=== PATIENT | female | born 2000 | race Caucasian/White ===

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

== ENCOUNTER 2024-05-16 09:32 | Inpatient (IN) | payer OTHER ==
[2024-05-16] MEDS ORDERED: CARBOPROST TROMETHAMINE 250 MCG/ML 1 ML AMP IM PRN ×2 (09:40→09:57)
[2024-05-16] MEDS ORDERED: miSOPROStoL 200 MCG TAB PO PRN ×2 (09:40→09:57)
[2024-05-16] MEDS ORDERED: TERBUTALINE 1 MG/ML VIAL SQ PRN ×2 (09:40→09:57)
[2024-05-16] MEDS ORDERED: LIDOCAINE 0.5% (PF) 5 MG/ML (50 ML SDV) SQ PRN ×2 (09:40→09:57)
[2024-05-16] MEDS ORDERED: TRANEXAMIC 1,000 MG/100ML-NACL 1,000 MG in EMPTY BAG 1 BAG IV PRN ×2 (09:40→09:57)
[2024-05-16] MEDS ORDERED: OXYTOCIN 10 UNIT/ML 1 ML VIAL IM PRN ×2 (09:40→09:57)
[2024-05-16] MEDS ORDERED: miSOPROStoL 200 MCG TAB RECTAL PRN ×2 (09:40→09:57)
[2024-05-16] MEDS ORDERED: METHYLERGONOVINE 0.2 MG/ML 1 ML AMP IM PRN ×2 (09:40→09:57)
[2024-05-16] MEDS ORDERED: OXYTOCIN 30 UNITS/500 ML NS 30 UNIT in SALINE 1 500ML.BAG IV SCH (09:45)
[2024-05-16] MEDS: LACTATED RINGERS 1,000 ML IV SCH ×2 (10:00→20:39)
[2024-05-16] MEDS: OXYTOCIN 30 UNITS/500 ML NS 30 UNIT in SALINE 1 500ML.BAG IV SCH (10:15)
[2024-05-16] MEDS ORDERED: diphenhydrAMINE 50 MG CAP PO PRN (11:20)
[2024-05-16] MEDS ORDERED: BENZOCAINE/MENTHOL SPRAY 1 GM/SPRAY AEROSOL TOPICAL PRN (11:20)
[2024-05-16] MEDS ORDERED: HYDROCORTISONE 2.5% RECTAL CREAM 30 GM TUBE RECTAL PRN (11:20)
[2024-05-16] MEDS ORDERED: LANOLIN CREAM 1 GM TUBE TOPICAL PRN (11:20)
[2024-05-16] MEDS ORDERED: diphenhydrAMINE 25 MG CAP PO PRN (11:20)
[2024-05-16] MEDS ORDERED: ZOLPIDEM 5 MG TAB PO PRN (11:20)
[2024-05-16] MEDS ORDERED: diphenhydrAMINE 50 MG/ML 1 ML VIAL IVP PRN ×2 (11:20)
[2024-05-16] MEDS ORDERED: SIMETHICONE 80 MG CHEWABLE PO PRN (11:20)
--- NOTE | 2024-05-16 11:23 | P.HPOB ---
History of Present Illness H&P Date: 05/16/24 Chief Complaint: active labor 23-year-old G2, P1 presents at 38 weeks and 5 days in active labor. Cervix was around dilated and +2 station. She was surendra every 2 minutes. heart tones category 1. She has had care at [facility] with Dr. Lili Rivero. Review of Systems All systems: negative Constitutional: Denies chills, Denies fever Eyes: denies blurred vision, denies pain Ears, nose, mouth and throat: Denies headache, Denies sore throat Cardiovascular: Denies chest pain, Denies shortness of breath Respiratory: Denies cough Gastrointestinal: Denies abdominal pain, Denies diarrhea, Denies nausea, Denies vomiting Genitourinary: Denies dysuria, Denies hematuria Musculoskeletal: Denies myalgias Integumentary: Denies pruritus, Denies rash Neurological: Denies numbness, Denies weakness Psychiatric: Denies anxiety, Denies depression Endocrine: Denies fatigue, Denies weight change Past Medical History Past Medical History: No Reported History History of Any Multi-Drug Resistant Organisms: None Reported Past Surgical History: No Surgical Hx Reported Past Anesthesia/Blood Transfusion Reactions: No Reported Reaction Past Psychological History: No Psychological Hx Reported Smoking Status: Never smoker Past Alcohol Use History: None Reported Past Drug Use History: None Reported - Past Family History Mother Family Medical History: No Reported History Medications and Allergies Home Medications Medication Instructions Recorded Confirmed Type Pediatric Multivitamin No.30 1 tab PO DAILY 11/06/17 05/16/24 History [Multivitamin Children's Gummies] Allergies Allergy/AdvReac Type Severity Reaction Status Date / Time No Known Allergies Allergy Verified 05/16/24 09:37 Exam Osteopathic Statement: *. No significant issues noted on an osteopathic structural exam other than those noted in the History and Physical/Consult. Vital Signs Temp Pulse Resp BP 05/16/24 11:04 62 17 146/82 05/16/24 10:49 68 17 148/89 05/16/24 10:34 65 18 127/82 05/16/24 10:19 97.7 F 100 16 121/78 Intake and Output 05/15/24 05/16/24 05/16/24 22:59 06:59 14:59 Output Total 100 Balance -100 Output: Output, Quantitative 100 Blood Loss Other: Weight 66.678 kg Heart: Regular rate and rhythm Lungs: Clear to auscultation bilaterally Abdomen: Soft, nontender Extremities: Negative Homans sign Assessment and Plan (1) Active labor Current Visit: Yes Status: Acute Code(s): [id number] - SNOMED Code(s): 442719815 Plan: 1. Admit to family birthplace 2. Expectant management 3. Anticipate normal vaginal delivery
--- NOTE | 2024-05-16 11:24 | P.PROBDLV ---
Vaginal Delivery Note - . Vaginal Delivery Note: 23-year-old G2, P1 presents at 38 weeks and 5 days in active labor. Cervix was around dilated and +2 station. She was surendra every 2 minutes. heart tones category 1. Patient believes that her water broke around 830 this morning. She pushed with about 4 contractions and delivered a viable female over intact perineum at 10:13 AM. Head delivered OA, anterior shoulder delivered to the OR guidance followed by posterior shoulder and rest of body. Nose and mouth bulb suction, clear Storm to cut, placed on mother's abdomen. Apgars 9, 9, weight 6 pounds 9 ounces. Placenta delivered spontaneously, intact with three-vessel cord 10:15 AM. Vagina, cervix, perineum were inspected. No lacerations noted. Estimated blood loss 100 mL. Mother and baby in stable condition.
[2024-05-16 11:42] LABS: Basophils % (A) 0 %; Eosinophils % (A) 0 %; HCT 35.5 % (34.0-46.0); HGB 11.5 gm/dL (11.4-16.0); Hypochromasia Moderate; Lymphocytes # (A) 1.3 k/uL (1.0-4.8); Lymphocytes % (A) 9 %; MCH 27.3 pg (25.0-35.0); MCHC 32.5 g/dL (31.0-37.0); Mean Platelet Volume 12.2; Monocytes # (A) 0.4 k/uL (0-1.0); Monocytes % (A) 3 %; Neutrophils # (A) 13.5 k/uL (1.3-7.7); Neutrophils % (A) 88 %; Platelet Count 173 k/uL (150-450); RBC 4.22 m/uL (3.80-5.40); RDW 14.8 % (11.5-15.5); WBC 15.4 k/uL (3.8-10.6)
[2024-05-16] MEDS: IBUPROFEN 800 MG TAB PO SCH (11:57)
[2024-05-16 12:19] LABS: Large Platelets Present; RBC Morphology Normal
[2024-05-16 12:31] LABS: Amphetamine Screen,Urine Not Detected (NotDetected); Barbiturate Screen,Urine Not Detected (NotDetected); Benzodiazepines Screen,Urine Not Detected (NotDetected); Cocaine Screen,Urine Not Detected (NotDetected); Methadone Screen, Urine Not Detected (NotDetected); Opiate Screen,Urine Not Detected (NotDetected); Oxycodone Screen, Urine Not Detected (NotDetected); Phencyclidine Screen,Urine Not Detected (NotDetected); Tricyclic Antidepressant,Urine Not Detected (NotDetected); Urn Cannabinoid Scrn Not Detected (NotDetected)
[2024-05-16] MEDS: SENNOSIDES-DOCUSATE SODIUM 1 EACH TAB PO SCH (20:35)
[2024-05-16] MEDS: ACETAMINOPHEN ORAL SUSP (PEDS) 3,840 MG/120 ML BOTTLE PO SCH (20:39)
[2024-05-17] MEDS: ACETAMINOPHEN TAB 500 MG TAB PO PRN (00:15)
[2024-05-17 06:20] LABS: Basophils % (A) 0 %; Eosinophils # (A) 0.1 k/uL (0-0.7); Eosinophils % (A) 1 %; HCT 32.4 % (34.0-46.0); Hypochromasia Slight; Lymphocytes # (A) 2.6 k/uL (1.0-4.8); Lymphocytes % (A) 25 %; MCH 26.8 pg (25.0-35.0); MCHC 30.9 g/dL (31.0-37.0); MCV 86.6 fL (80.0-100.0); Mean Platelet Volume 12.1; Monocytes # (A) 0.5 k/uL (0-1.0); Monocytes % (A) 5 %; Neutrophils % (A) 67 %; RBC 3.74 m/uL (3.80-5.40); RDW 15.2 % (11.5-15.5); WBC 10.4 k/uL (3.8-10.6)
[2024-05-17 07:32] LABS: Large Platelets Present
[2024-05-17 07:33] LABS: Platelet Count 155 k/uL (150-450)
--- NOTE | 2024-05-17 09:02 | P.DS ---
Providers Date of admission: 05/16/24 10:03 Expected date of discharge: 05/17/24 Attending physician: Venus Tijerina Primary care physician: Stated None - Discharge Diagnosis(es) (1) Active labor Current Visit: Yes Status: Resolved (2) Status post normal vaginal delivery Current Visit: Yes Status: Acute Hospital Course: Patient presented in active labor and underwent a normal vaginal delivery. course has been complicated by a few elevated blood pressures of 140/90. She is asymptomatic she denies nausea, vomiting, chest pain, shortness of breath, headache vision changes or right upper quadrant pain. Patient will be discharged home day #1 in stable condition to follow-up with her own doctor in 1 week. Plan - Discharge Summary New Discharge Prescriptions: New Ibuprofen [Motrin] 800 mg PO Q8HR #30 tab No Action Pediatric Multivitamin No.30 [Multivitamin Children's Gummies] 1 tab PO DAILY Discharge Medication List Pediatric Multivitamin No.30 [Multivitamin Children's Gummies] 1 tab PO DAILY 11/06/17 [History] Ibuprofen [Motrin] 800 mg PO Q8HR #30 tab 05/17/24 [Rx] Follow up Appointment(s)/Referral(s): Lili Rivero DO [REFERRING] - 1 Week Discharge Disposition: HOME SELF-CARE
[2024-05-17 11:51] VITALS: BP 157/113; PULSE 57; RESP 18; TEMP 98
== END 2024-05-17 12:55 | disposition home or self-care (01) | DRG 560 ==
LOC: FBPOP 09:32 → 4FBP 10:03
PROVIDERS: ADMIT Obstetrics & Gynecology; ATTEND Obstetrics & Gynecology
PROC: 10E0XZZ Delivery of Products of Conception, External Approach (ICD-10-PCS; principal; 2024-05-16)
DX: O80 Encounter for full-term uncomplicated delivery (principal); Z37.0 Single live birth; Z3A.38 38 weeks gestation of pregnancy; R03.0 Elevated blood-pressure reading, without diagnosis of hypertension
CPT/HCPCS: 59025; 80306; 85025; 86850; 86900; 86901; 99213